=== PATIENT | male | born 1940 | race Hispanic/Latino ===

== ENCOUNTER → 2018-01-04 | Outpatient (CLI) | payer OTHER ==
[~2018-01-04] MED LIST: AEC81 PO; CLOP75TA14 PO; FERR-82 PO; GLIM2TAB3 PO; LEVO100T12 PO; LINA5TAB PO; LISI10TA7 PO; MELA1TAB28 PO; METO200T49 PO; PANT40TA25 PO; RIVA20TA PO; SIMV40TA5 PO; TAMS0.4C32 PO
== END | disposition home or self-care (01) ==
LOC: RAH 10:17
PROVIDERS: ATTEND Internal Medicine
DX: M25.511 Pain in right shoulder (principal)
CPT/HCPCS: 73030; 73060